=== PATIENT | female | born 1935 | race Caucasian/White ===

== ENCOUNTER 2018-08-14 06:07 | Inpatient (IN) ==
[2018-08-14] MEDS ORDERED: Clindamycin 900 MG/50 ML 900 MG/50 ML IV.SOLN IVPB ONE (06:32)
--- NOTE | 2018-08-14 06:44 | History & Physical Report ---
Date of Encounter: 08/14/18 Time of Encounter: 06:43 24 Hour HP Update - Instructions Instructions: If the History and Physical is less than 30 days old and was completed prior to A.M. admission and or procedure and has NOT been updated on calendar day of procedure please complete this update prior to performing procedure. - Update Patient reports changes in Medical Condition: No Changes in examination, assessment, or condition: No Changes in Medication: No Preop tests/diagnostics Reviewed: Yes Surgery Remains Indicated: Yes Consent for Planned Operative Procedure(s) Verified: Yes - Pre-Operative Checklist Preoperative Checklist Indicated: No Prophylactic Antibiotic Ordered: Yes Is VTE Prophylaxis Indicated?: Yes
[2018-08-14] MEDS ORDERED: Ringers Solution, Lactated 1,000 ML IVC SCH ×2 (06:45→11:13)
[2018-08-14] MEDS ORDERED: LIDOCAINE 1% PF 2 ML AMPUL ONE (07:12)
[2018-08-14] MEDS ORDERED: *HR* Midazolam HCl 2 MG/2 ML VIAL ONE (07:21)
[2018-08-14] MEDS ORDERED: *HR* FentaNYL (PF) 100 MCG/2 ML VIAL ONE (07:21)
[2018-08-14] MEDS ORDERED: *HR* Propofol 200 MG/20 ML VIAL IVP ONE (07:22)
[2018-08-14] MEDS ORDERED: Ondansetron 4 MG/2 ML VIAL ONE (07:25)
[2018-08-14] MEDS ORDERED: Dexamethasone 4 MG/ML VIAL ONE ×3 (07:25→09:50)
[2018-08-14] MEDS ORDERED: Lidocaine -MPF 4% 5 ML AMPUL ONE (07:26)
--- NOTE | 2018-08-14 07:44 | Anesthesia Evaluation PreOp ---
Date of Encounter: 08/14/18 Time of Encounter: 07:41 - Past History Planned Operation: Right Total Shoulder Cardiac History: HTN, Hyperlipidemia Pulmonary History: Denies Any Significant HX, Snore MEAT INSPECTOR History: Denies Any Significant HX Other Medical History: Diabetes Type II, Thyroid Anesthesia History: No Prior Anesthetic Complications, Past Anesthesia Alcohol Use: none Drug use: none Medications and Allergies Cholecalciferol (D-3) [Vitamin D] 1,000 unit PO DAILY 06/12/18 [History] Gabapentin [Neurontin] 300 mg PO HS 06/12/18 [History] Levothyroxine Sodium [Levoxyl] 50 mcg PO QAM 06/12/18 [History] Losartan Potassium 50 mg PO QAM 06/12/18 [History] Lovastatin [Mevacor] 20 mg PO HS 06/12/18 [History] hydroCHLOROthiazide [Hydrochlorothiazide] 25 mg PO DAILY 06/12/18 [History] Metformin HCl [Fortamet] 500 mg PO DAILY 08/14/18 [History] Allergy/AdvReac Type Severity Reaction Status Date / Time Amoxicillin AdvReac Dizziness Verified 08/14/18 07:40 oxycodone AdvReac Hallucinati Verified 08/14/18 07:40 ng - Meds/Allergy Pre-op Review Medications Reviewed: Yes Allergies Reviewed: Yes Beta Blockers on Current Med List: No Anesthesia Results - Labs Laboratory Tests 08/13/18 08/13/18 10:47 10:47 WBC 7.7 Hgb 13.1 Hct 42.2 Plt Count 322 Sodium 140 Potassium 3.7 BUN 15 Creatinine 0.87 - Imaging EKG: report reviewed (10/18/2017 SINUS RHYTHM NONSPECIFIC T-WAVE ABNORMALITY) Anesthesia Exam O2 Sat Height 1.65 m Height 1.65 m Weight 104.326 kg Weight 104.326 kg O2 Sat by Pulse Oximetry 98 Vital Signs Temp Pulse Resp BP Pulse Ox 98.1 F 93 18 152/87 98 08/14/18 07:15 08/14/18 07:15 08/14/18 07:15 08/14/18 07:15 08/14/18 07:15 Height: 5'5'' Weight: 230 lbs NPO (# of Hours): 8 Pain Scale: 0 Pain Scale Used: Numeric (1 - 10) - HEENT Pupil (Motor): EOMI Mallampati: II Teeth: Edentulous Oral Opening: Greater than 3 - MEAT INSPECTOR LOC: Oriented MEAT INSPECTOR Motor: Normal RUE, Normal LUE, Normal RLE, Normal LLE, Normal Face MEAT INSPECTOR Sensory: Normal: RUE, LUE, Face, Deficit: RLE, LLE - Cardiac Rhythm: Regular Murmur: None - Pulmonary Breath Sounds: bilateral Clear Respiratory Effort: Symmetrical Anesthesia Assess/Plan ASA Score: 3 Level of consciousness: Cooperative, Oriented, Tranquil Anesthetic Plan: General, Regional Nerve Block Regional Nerve Block Plan: Supraclavicular Monitoring Plan: Standard Monitors Recovery Plan: PACU
[2018-08-14] MEDS ORDERED: ROPIVACAINE HCL/PF 0.5% 30 ML VIAL ONE (07:57)
[2018-08-14] MEDS ORDERED: ROPIVACAINE/PF/NS SYRINGE INTRAART ONE (07:57)
[2018-08-14] MEDS ORDERED: Ethanol\\Acetic Acid\\Na Ace\\Ben 1,000 ML IRRIG.SOLN IR ONE (07:59)
[2018-08-14] MEDS ORDERED: Lidocaine -MPF 2% 2 ML VIAL ONE (08:00)
--- NOTE | 2018-08-14 08:27 | Discharge Summary ---
Orders not resulted at time of discharge: Pending orders 08/14/18 01:00 XR post op reverse apex RT [XR] Routine Hemoglobin and Hematocrit [HEME] Routine 08/14/18 07:54 US anesthesia pain block [US] Routine Date of Encounter: 08/14/18 Time of Encounter: 15:30 - Discharge Diagnosis (1) Rotator cuff tear arthropathy Priority: Primary Status: Chronic Qualifiers: Laterality: right Qualified Code(s): M75.101 - Unspecified rotator cuff tear or rupture of right shoulder, not specified as traumatic; M12.811 - Other specific arthropathies, not elsewhere classified, right shoulder (2) Status post total replacement of right shoulder Priority: Primary Status: Acute (3) Diabetes Priority: Secondary Status: Chronic Qualifiers: Diabetes mellitus type: type 2 Diabetes mellitus fpc insulin use: unspecified termite control technician insulin use status Diabetes mellitus complication status: with neurologic complications Diabetes mellitus complication detail: with unspecified neuropathy Qualified Code(s): E11.40 - Type 2 diabetes mellitus with diabetic neuropathy, unspecified (4) HTN (hypertension) Priority: Secondary Status: Chronic Qualifiers: Hypertension type: unspecified Qualified Code(s): I10 - Essential (primary) hypertension (5) HLD (hyperlipidemia) Priority: Secondary Status: Chronic Qualifiers: Hyperlipidemia type: unspecified Qualified Code(s): E78.5 - Hyperlipidemia, unspecified (6) Hypothyroid Priority: Secondary Status: Chronic Qualifiers: Hypothyroidism type: unspecified Qualified Code(s): E03.9 - Hypothyroidism, unspecified (7) Diverticulosis Priority: Secondary Status: Chronic - Hospital Course Hospital course: Ms. Moss is a 83 year old female POD#0 Total Shoulder Replacment Reverse, right [Right shoulder cuff tear arthropathy] 08/14/18 Patient discharging to home POD#0 with outpatient therapy and orthopedic follow up arranged. Short CBC 08/14/18 Range/Units 10:00 Hgb 11.6 D (11.5-15.4) g/dL Hct 36.3 (35.3-44.9) % Vital Signs Temp Pulse Resp BP Pulse Ox 08/14/18 17:19 103 126/69 08/14/18 15:48 98.0 F 100 15 115/72 93 08/14/18 13:40 97.5 F L 101 17 153/74 96 08/14/18 12:00 97.6 F 97 15 163/89 93 08/14/18 11:40 97 F L 94 18 158/84 95 08/14/18 11:06 97.4 F L 89 16 158/69 94 08/14/18 10:49 97.2 F L 90 20 148/71 95 08/14/18 10:39 88 20 141/70 95 08/14/18 10:29 97.2 F L 91 20 174/77 96 08/14/18 10:19 89 20 170/78 99 08/14/18 10:09 89 22 167/78 100 08/14/18 09:59 96.8 F L 94 20 171/73 100 08/14/18 09:49 88 20 171/90 95 08/14/18 09:39 96 20 159/89 93 08/14/18 09:29 97.6 F 98 20 162/89 95 08/14/18 08:11 77 18 185/96 96 08/14/18 08:00 81 16 172/101 98 08/14/18 07:15 98.1 F 93 18 152/87 98 Intake and Output 08/14/18 08/14/18 08/14/18 07:59 15:59 23:59 Intake Total 100 / 150 50 / 150 Output Total 50 / 50 Balance 50 / 100 50 / 100 Intake: IV Fluids 50 / 50 Cleocin Premix 900 MG/50 ML 900 50 / 50 mg In 50 ml @ 50 mls/hr IVPB Q8HR [facility] Rx#:[id number] Oral 100 / 100 Output: Estimated Blood Loss 50 / 50 Other: # Voids 1 Weight 104.326 kg Blood Glucose* 127 211 Patient Weight 08/14/18 23:59 Weight 104.326 kg - Time Spent with Patient Total time spent providing and/or coordinating discharge services: - Discharge Medications Prescriptions: New Docusate Sodium [Colace] 100 mg PO BID 5 Days #10 capsule HYDROcodone/Acet 5/325 mg [Odonnell 5-325 mg] 1 tab PO Q6H PRN 5 Days #20 tab PRN Reason: Severe Pain Continued Cholecalciferol (D-3) [Vitamin D] 1,000 unit PO DAILY Gabapentin [Neurontin] 300 mg PO HS Lovastatin [Mevacor] 20 mg PO HS Losartan Potassium 50 mg PO QAM Levothyroxine Sodium [Levoxyl] 50 mcg PO QAM hydroCHLOROthiazide [Hydrochlorothiazide] 25 mg PO DAILY Metformin HCl [Fortamet] 500 mg PO DAILY Home Medications: Cholecalciferol (D-3) [Vitamin D] 1,000 unit PO DAILY 06/12/18 [History] Gabapentin [Neurontin] 300 mg PO HS 06/12/18 [History] Levothyroxine Sodium [Levoxyl] 50 mcg PO QAM 06/12/18 [History] Losartan Potassium 50 mg PO QAM 06/12/18 [History] Lovastatin [Mevacor] 20 mg PO HS 06/12/18 [History] hydroCHLOROthiazide [Hydrochlorothiazide] 25 mg PO DAILY 06/12/18 [History] Docusate Sodium [Colace] 100 mg PO BID 5 Days #10 capsule 08/14/18 [Rx] HYDROcodone/Acet 5/325 mg [Odonnell 5-325 mg] 1 tab PO Q6H PRN 5 Days #20 tab 08/14/18 [Rx] Metformin HCl [Fortamet] 500 mg PO DAILY 08/14/18 [History] Allergies/Adverse Reactions: Allergy/AdvReac Type Severity Reaction Status Date / Time Amoxicillin AdvReac Dizziness Verified 08/14/18 07:40 oxycodone AdvReac Hallucinati Verified 08/14/18 07:40 ng Date of admission: 08/14/18 Primary care physician: Justus Encinas DO Discharging clinician: Lei Mehta Anticipated date of discharge: 08/14/18 - VTE Documentation of Mechanical Device: Venous foot pump, device - Patient Status Disposition: Home, Self-Care Condition: Good Functional capacity at discharge: independent ambulation Overall status at discharge: patient is progressing back to baseline - Discharge Instructions Follow Up With: Nadja Santos PAC [Physician Gymnasium Teacher] - 08/21/18 1:15 pm (Second followup 08/30/18 @ 9:45am) Lei Mehta MD [Partnered Physician] - 09/11/18 4:00 pm Additional Instructions: Discharge Instructions: Total Shoulder Please call [facility] ([phone]), your Primary Care Physician, or report to the Emergency Room if you have any of the following symptoms: Nausea, vomiting, fever greater that 101.5, swelling, chest pain, shortness of breath, increased pain/redness/drainage/odor for your incision site, numbness/tingling, or any other concerning symptoms. ACTIVITY: Always keep your arm in the sling. Do not raise your arm away from your body. Do not use your arm to help with getting in or out of bed. No weight bearing permitted. Only perform those exercises given to you by your therapist. Incentive Spirometer 10 times an hour. MEDICATIONS: Upon discharge resume your home medications. Take all the medications as prescribed. Take a stool softener if taking narcotic pain medications. Stool softeners are only effective if you drink enough fluids. Dr ink 6-8 glass of water or fluids a day, unless this is not allowed for another health problem. Despite using stool softeners, if you haven't had a bowel movement in 3 days, please switch to a gentle laxative. Gentle laxatives are sold over the counter. You should have a bowel movement within 24 hours, if not call the office. You will be discharged from the hospital with a prescription for pain m edication. You are encouraged to decrease the use of narcotic pain medication as tolerated. Should you require a refill, please call the office. [facility] prescribes narcotic pain medication for only 4-6 weeks after surgery. If you require pain medication beyond this time period, you may be referred to your Primary Care Physician or to the Pain Clinic for further evaluation. Plan ahead for refills on pain medication as many narcotics either need to be picked up at the office or mailed. It is best to call 48-72 hours in advance of needing a prescription refill so you don't run out of medication. To help control the post-operative pain, you may take NSAIDs (Aleve,Advil, Motrin, Ibuprofen, Naprosyn) or Tylenol as prescribed on the bottle in addition to the pain medication. WOUND CARE: Leave the dressing on for 7-10 days. You may change the dressing if it becomes saturated greater than 50%. Do not get the dressing wet at anytime . Wash your hands with antibacterial soap, rinse and dry prior to any wound care. If you have natanael the visiting nurse or rehab facility can remove the stapes 10-14 days after surgery and place steri-strips across the wound. Leave the steri-strips in place until they fall off on their own. You may let water from the shower run on top of the steri-strips. If you do not have a visiting nurse or rehab facility, you will need to return to the office at 10-14 days for the natanael to be removed. If you have itching or redness around the dressing call the office. FOLLOW-UP: Please follow up with your surgeon in the orthopedic clinic, as scheduled - Diet and Activity Activity: as per physical therapy Diet: advance to your usual diet
[2018-08-14] MEDS ORDERED: EPHEDrine 50 MG/ML VIAL ONE (08:38)
[2018-08-14] MEDS ORDERED: *HR* HYDROmorphone (PF) 1 MG/ML SYRINGE IVP PRN (08:54)
[2018-08-14] MEDS ORDERED: Ondansetron 4 MG/2 ML VIAL IVP ONE (08:54)
--- NOTE | 2018-08-14 08:58 | Anesthesia Procedures ---
Date of Encounter: 08/14/18 Time of Encounter: 08:01 Procedures: Anesthesia - Nerve Block Procedure Date: 08/14/18 Time: 08:01 Allergies/Adv Reactions: amoxicillin, oxycodone Pre-op Diagnosis: right shoulder arthropathy Surgical Procedure: right total shoulder reverse Checklist: Correct Patient Identifier, Correct procedure Correct side: Right Blood Thinner: No Monitor Applied: EKG, BP, Pulse Oximetry Supplemental Oxygen via Nasal Cannula (L/min): 2 Sedation: Fentanyl (mcg): 50 Indication: Post Op Analgesia Pre-op Neuro Deficits: No Block Type: Supraclavicular Catheter placed: No Sterile Technique: Yes Ultrasound used: Yes Anatomy identified: Yes Visual spread of Local: Yes Neuro Stimulation: No Blood on Needle Aspiration: No Smooth Injection of Local: Yes Pain with Injection of Local: No Prep: Chlorhexadine Needle: 22 x 50 mm Stimuplex Local: Ropivacaine (0.5 % for supraclavicular), Other (ropivicaine 0.25% 15 ml for supercervical and ICB) Volume (cc): 40 Number of Attempts: 1 Complications: None/effective block Vitals: see nurses notes, vs stable trhroughout
--- NOTE | 2018-08-14 09:06 | Orthopedic Operative Note ---
Date of procedure: 08/14/18 Pre-op diagnosis: Right shoulder cuff tear arthropathy Post-op diagnosis: same Procedure: Procedure: Total Shoulder Replacment Reverse, right Estimated blood loss: 50 cc Hardware: Metal and polyethylene replacement: Arthrex 24, +2 , 25 screw glenoid baseplate, 4 locking 5.5 screw, 39+4 glenosphere, 10 apex humeral stem, poly insert 3 Exam Under anesthesia: Full motion no instability Procedural Notes: Irreparable rotator cuff tear Operative procedure: The patient was brought to the operating room and placed on the operating room table. After general anesthesia was administered the operative shoulder was examined. Findings were noted. The patient was placed in the modified beachchair position. All pressure points were padded appropriately. And the head was stabilized in the neutral position. The operative extremity was prepped and draped in the sterile surgical fashion. The patient received IV antibiotics prior to skin incision. A standard deltopectoral approach was made to the operative shoulder. Incision was made to the skin and subcutaneous tissue,hemo stasis was obtained with Bovie cautery. Using careful blunt dissection the cephalic vein was identified and mobilized medially. The deltopectoral interval was developed and the clavipectoral fascia was incised. The subscap was released off the lesser tuberosity and tagged with #2 FiberWire suture subscap was irreparable. The humerus was dislocated patient noted to have irreparable tear supraspinatus tendon, and the humeral cut was made along the anatomic neck. Anterior and posterior Bankart retractors were placed to expose the glenoid. The glenoid guide was seated and the centering hole was made. It was reamed with the appropriate reamer. The 24, +2, 25 mm screw, baseplate was seated and secured with 4 locking 5.5 screw. The baseplate was irrigated and dried and the 39+4 Glenosphere was seated and secured with the Joseph taper. The Joseph taper was tested and found to be secure, glenosphere fixation was secondarily secured with the central screw. The humerus was redislocated and prepared with the diaphyseal reamers, followed by a broaching process up to the appropriate size 10 in the patient's anatomic version. The metaphyseal reamer was then utilized. Trial reduction found the shoulder to be relocatable. Trial components were removed and 10 stem was impacted in place in the patient's anatomic version. Trial reduction found the shoulder to be relocatable and stable with the appropriate 3 Trial component was removed and the real implant was seated and secured the shoulder was reduced. The shoulder had excellent motion and e xcellent stability and no evidence of dislocation. The deep tissue was irrigated with pulse irrigation. The PA close the shoulder. The deltopectoral interval was closed with a running #1 PDS suture, subcutaneous tissue was irrigated and closed with 0 PDS suture, the skin was closed with Dermabond. The patient was placed in a sterile dressing, abduction brace and extubated. The patient was then transferred to the recovery room in stable condition. Anesthesia: GETA Surgeon: Lei Mehta Was there an optometrist assistant present: Yes [employer] Dispatcher: Nadja Santos Estimated blood loss (cc): 50 Condition: stable Disposition: PACU
[2018-08-14] MEDS ORDERED: Albuterol 2.5 MG/3 ML NEBULIZER ONE (09:48)
[2018-08-14] MEDS ORDERED: Ipratropium/Albuterol Neb 3 ML IH ONE (10:03)
[2018-08-14] MEDS ORDERED: Dexamethasone 4 MG/ML VIAL IVP ONE (10:03)
[2018-08-14 10:20] LABS: Hematocrit 36.3 % (35.3-44.9); Hemoglobin 11.6 g/dL (11.5-15.4)
--- NOTE | 2018-08-14 10:40 | Anesthesia Evaluation Post Op ---
Date of Encounter: 08/14/18 Time of Encounter: 10:35 - Vital Signs Vital Signs: Selected Entries 08/14/18 10:29 Temperature 97.2 F L Pulse Rate 91 Respiratory Rate 20 Blood Pressure 174/77 O2 Sat by Pulse Oximetry 96 - Lungs Lungs: Clear Ascult./Percussion - Airway Airway: Non-obstructed - Cardiovascular Regular Rate - Pain Pain Scale: 0 Pain Scale used: Numeric (1 - 10) - Nausea Vomiting Nausea Vomiting: Not Present - Hydration Hydration: Ice chips, Has not voided Notes: 08/14/18 10:36 was CTSP early in PACU admission with complaint of "I can't breath". Sats were 85-89 on nasal cannula. Diminished breath sounds were present. She did receive 8mg decadron for possible laryngoedema and did receive albuterol breathing treatment. She was placed on a NRB mask. She improved immediately. I believe that much of this was due to the block with some phrenic nerve paralysis. She was breathing fine at time of discharge with no complaints - Discharge PostOp Status: Transfer Patient to floor
[2018-08-14] MEDS ORDERED: Sennosides 8.6 MG TABLET PO PRN (11:13)
[2018-08-14] MEDS ORDERED: Temazepam 15 MG CAPSULE PO PRN (11:13)
[2018-08-14] MEDS ORDERED: MOM Conc 10 ML UD.LIQ PO PRN (11:13)
[2018-08-14] MEDS ORDERED: *HR* HYDROcodone/Acet 5/325 mg TABLET PO PRN (11:13)
[2018-08-14] MEDS ORDERED: D5% in Water 1,000 ML IVC PRN (11:13)
[2018-08-14] MEDS ORDERED: *HR* HYDROcodone/Acet 10/325 mg TABLET PO PRN (11:13)
[2018-08-14] MEDS ORDERED: Cholecalciferol (D-3) 1,000 UNIT TABLET PO SCH (11:13)
[2018-08-14] MEDS ORDERED: *HR* Dextrose 50 % in Water (Syg) 50 ML SYRINGE IVP PRN (11:13)
[2018-08-14] MEDS ORDERED: *HR* Metformin 500 MG TABLET PO SCH (11:13)
[2018-08-14] MEDS ORDERED: hydroCHLOROthiazide 25 MG TABLET PO SCH (11:13)
[2018-08-14] MEDS ORDERED: Clindamycin 900 MG/50 ML 900 MG/50 ML IV.SOLN IVPB SCH ×2 (11:13→16:00)
[2018-08-14] MEDS ORDERED: traMADol 50 MG TABLET PO PRN (11:13)
[2018-08-14] MEDS ORDERED: Dextrose Gel 15 GM/37.5 ML TUBE PO PRN ×2 (11:13)
[2018-08-14] MEDS ORDERED: Ondansetron 4 MG/2 ML VIAL IVP PRN (11:13)
[2018-08-14] MEDS: Insulin LISPRO 300 UNITS/3 ML VIAL SQ SCH ×2 (15:07→17:28)
[2018-08-14] MEDS ORDERED: *HR* Enoxaparin 30 MG/0.3 ML SYRINGE SQ SCH ×3 (15:51→18:00)
[2018-08-14 17:19] VITALS: BP 126/69
[2018-08-14] MEDS ORDERED: Gabapentin 300 MG CAPSULE PO SCH (21:00)
[2018-08-14] MEDS ORDERED: Insulin LISPRO 300 UNITS/3 ML VIAL SQ SCH (21:00)
== END 2018-08-14 18:10 | disposition home or self-care (01) | DRG 483 ==
LOC: SAMDAY 06:07 → 3NENU 10:45
PROVIDERS: ADMIT Orthopaedic Surgery; ATTEND Orthopaedic Surgery

== ENCOUNTER 2019-07-28 17:09 | Observation (INO) ==
[2019-07-28] MEDS ORDERED: Isovue-370 500 ML BOTTLE IVP ONE (17:33)
[2019-07-28 18:09] LABS: Basophils % 0.2 %; Eosinophils % 0.4 %; Hematocrit 39.7 % (35.3-44.9); Hemoglobin 12.6 g/dL (11.5-15.4); Immature Granulocytes % 0.5 % (0-4); Lymphocytes # 1.4 K/mcL (0.6-4.6); Lymphocytes % 16.9 %; Mean Corpuscular HGB Conc 31.7 g/dL (31.6-35.5); Mean Corpuscular Hemoglobin 29.4 pg (28.0-33.3); Mean Corpuscular Volume 92.8 fL (83.0-100.0); Mean Platelet Volume 9.2 fL (9.4-12.4); Monocytes # 0.6 K/mcL (0.0-1.3); Monocytes % 7.6 %; Platelet Count 314 K/mcL (140-400); Red Blood Count 4.28 M/mcL (3.82-4.97); Red Cell Distribution Width 14.7 % (11.5-14.5); Segmented Neutrophils % 74.4 %; White Blood Count 8.1 K/mcL (4.3-11.1)
[2019-07-28 18:21] LABS: BUN/Creatinine Ratio 30 (6-26); Blood Urea Nitrogen 25 mg/dL (8-23); Calcium 9.9 mg/dL (8.6-10.3); Carbon Dioxide 26 mEq/L (23-29); Chloride 104 mEq/L (98-107); Glucose 128 mg/dL (70-105); Osmolality,Calculated 290 (280-300); Potassium 3.7 mEq/L (3.5-5.1); Sodium 137 mEq/L (136-145); Troponin I < 0.03 ng/mL (< 0.04); eGFR For African Americans > 60 (> 60); eGFR For Non-African Americans > 60 (> 60)
[2019-07-28] MEDS ORDERED: *HR* Heparin 5,000 UNIT/ML VIAL IVP PRN ×2 (18:53)
[2019-07-28] MEDS ORDERED: *HR* Heparin 5,000 UNIT/ML VIAL IVP ONE (18:53)
[2019-07-28] MEDS ORDERED: Heparin 25,000 UNIT/250 ML D5W 25,000 UNIT/250 ML IV.SOLN IVC SCH (19:00)
[2019-07-28 19:38] LABS: INR 0.9; Prothrombin Time 10.4 Seconds (9.4-12.1)
[2019-07-28 19:39] LABS: Heparin anti-factor XA UFH < 0.04 IU/mL (0.30-0.70)
[2019-07-28] MEDS ORDERED: *HR* Promethazine 25 MG/ML VIAL IVP PRN (22:10)
[2019-07-28] MEDS ORDERED: Naloxone 0.4 MG/ML INJ IVP PRN (22:10)
[2019-07-28] MEDS ORDERED: *HR* Dextrose 50 % in Water (Syg) 50 ML SYRINGE IVP PRN (22:12)
[2019-07-28] MEDS ORDERED: D5% in Water 1,000 ML IVC PRN (22:12)
[2019-07-28] MEDS ORDERED: Dextrose Gel 15 GM/37.5 ML TUBE PO PRN ×2 (22:12)
[2019-07-29 01:37] LABS: Hematocrit 40.3 % (35.3-44.9); Hemoglobin 12.8 g/dL (11.5-15.4); Mean Corpuscular HGB Conc 31.8 g/dL (31.6-35.5); Mean Corpuscular Hemoglobin 29.6 pg (28.0-33.3); Mean Corpuscular Volume 93.1 fL (83.0-100.0); Mean Platelet Volume 9.2 fL (9.4-12.4); Platelet Count 306 K/mcL (140-400); Red Blood Count 4.33 M/mcL (3.82-4.97); Red Cell Distribution Width 14.5 % (11.5-14.5); White Blood Count 7.5 K/mcL (4.3-11.1)
[2019-07-29 01:42] LABS: Estimated Average Glucose 151 mg/dl
[2019-07-29 01:49] LABS: Prothrombin Time 11.5 Seconds (9.4-12.1)
[2019-07-29 02:20] LABS: Alanine Aminotransferase 16 Units/L (7-52); Albumin/Globulin Ratio 1.6 (1.1-2.2); Alkaline Phosphatase 71 Units/L (34-104); Aspartate Amino Transferase 14 Units/L (13-39); BUN/Creatinine Ratio 25 (6-26); Bilirubin,Total 0.4 mg/dL (0.3-1.0); Blood Urea Nitrogen 21 mg/dL (8-23); Calcium 9.8 mg/dL (8.6-10.3); Carbon Dioxide 26 mEq/L (23-29); Chloride 107 mEq/L (98-107); Globulin 2.5 g/dL (2.4-3.5); Glucose 128 mg/dL (70-105); Magnesium 2.2 mg/dL (1.6-2.6); Osmolality,Calculated 297 (280-300); Sodium 141 mEq/L (136-145); Thyroid Stimulating Hormone 1.952 mcIU/mL (0.340-5.600); Total Protein 6.5 g/dL (6.4-8.9); eGFR For African Americans > 60 (> 60); eGFR For Non-African Americans > 60 (> 60)
[2019-07-29 07:08] VITALS: BP 163/81
[2019-07-29] MEDS ORDERED: Insulin LISPRO 300 UNITS/3 ML VIAL SQ SCH (07:30)
[2019-07-29] MEDS ORDERED: hydroCHLOROthiazide 25 MG TABLET PO SCH (09:00)
[2019-07-29] MEDS ORDERED: *HR* Rivaroxaban 15 MG TABLET PO SCH (09:00)
[2019-07-29] MEDS ORDERED: Cholecalciferol (D-3) 1,000 UNIT (25MCG) TABLET PO SCH (09:00)
[2019-07-29] MEDS ORDERED: *HR* Enoxaparin 120 MG/0.8 ML SYRINGE SQ ONE (12:26)
[2019-07-29] MEDS ORDERED: Gabapentin 300 MG CAPSULE PO SCH (21:00)
== END 2019-07-29 14:09 | disposition home or self-care (01) ==
LOC: 2ANU 17:09 → EMEROOARM 17:09 → 2ANU 21:10
PROVIDERS: ADMIT Student in an Organized Health Care Education/Training Program; ATTEND Student in an Organized Health Care Education/Training Program